=== PATIENT | female | born 1980 | race African-American/Black ===

== ENCOUNTER 2018-06-02 20:15 | Emergency (ER) | payer OTHER ==
[2018-06-02 20:47] VITALS: BP 136/93
== END 2018-06-02 22:49 | disposition home or self-care (01) ==
LOC: ED 20:15
DX: S61.212A Laceration without foreign body of right middle finger without damage to nail, initial encounter (principal); W25.XXXA Contact with sharp glass, initial encounter; Y93.89 Activity, other specified; Y92.098 Other place in other non-institutional residence as the place of occurrence of the external cause; Y99.8 Other external cause status
CPT/HCPCS: 90715